=== PATIENT | female | born 2000 | race African-American/Black ===

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

== ENCOUNTER 2022-03-08 19:41 | Emergency (ER) | payer OTHER ==
[2022-03-08 19:49] VITALS: BP 112/62; PULSE 67; RESP 16; TEMP 98; BMI 47.2
[2022-03-08] MEDS ORDERED: MAG HYDROX/AL HYDROX/SIMETH -MYLANTA- ORAL SUSPENSION PO ONE (20:26)
[2022-03-08] MEDS ORDERED: MAG HYDROX/AL HYDROX/SIMETH 30 ML UNIT-DOSE CUP ONE (20:29)
== END 2022-03-08 22:36 | disposition home or self-care (01) ==
LOC: FER 19:41
DX: R07.89 Other chest pain (principal)
CPT/HCPCS: 71046-TC-FY; 99283-25

== ENCOUNTER 2022-05-31 12:32 | Emergency (ER) | payer OTHER ==
[2022-05-31 12:45] VITALS: BMI 46.3
[2022-05-31 16:37] LABS: CALCIUM 9.2 mg/dL (8.5-10.1)
[2022-05-31 16:38] LABS: ALBUMIN 3.6 g/dl (3.4-5.0); BLOOD UREA NITROGEN 7.7 mg/dL (7-18); MAGNESIUM 2.3 mg/dL (1.8-2.4)
[2022-05-31 16:41] LABS: CREATININE 0.7 mg/dL (0.55-1.3)
[2022-05-31 16:42] LABS: BASO % 0.4 % (0-2.0); EOS % 1.4 % (0-4.5); HEMATOCRIT 39.3 % (32.4-45.2); HEMOGLOBIN 12.5 GM/dL (10.7-15.3); LYMPH % 20.3 % (8-40); MCH 22.6 pg (25.7-33.7); MCHC 31.7 g/dl (32.0-36.0); MEAN CELL VOLUME 71.4 fl (80-96); MEAN PLT VOLUME 8.5 fl (7.5-11.1); MONO % 3.3 % (3.8-10.2); NEUT % 74.6 % (42.8-82.8); PLATELET COUNT 427 10^3/uL (134-434); RBC 5.51 M/mm3 (3.60-5.2); RDW 17.9 % (11.6-15.6); WHITE BLOOD COUNT 10.5 K/mm3 (4.0-10.0)
[2022-05-31 16:43] LABS: BILIRUBIN,TOTAL 0.4 mg/dL (0.2-1); TOT PROT 9.1 g/dl (6.4-8.2)
[2022-05-31] MEDS ORDERED: LORazepam 2 MG TABLET PO ONE (18:05)
[2022-05-31] MEDS ORDERED: LORazepam 0.5 MG TABLET ONE (18:38)
[2022-05-31 18:53] VITALS: BP 127/68; PULSE 72; RESP 15; TEMP 98
== END 2022-05-31 19:11 | disposition home or self-care (01) ==
LOC: JER 12:32
DX: R00.2 Palpitations (principal)
CPT/HCPCS: 0241U-QW; 36415; 71046-TC-FY; 80053; 83735; 84703; 85025; 93005; 93010; 99284-25

== ENCOUNTER 2022-06-06 05:24 | Emergency (ER) | payer OTHER ==
[2022-06-06 06:20] VITALS: BMI 45.3
[2022-06-06] MEDS ORDERED: POLYETHYLENE GLYCOL (HEALTHYLAX) 3350 17 GM PACKET PO ONE (06:30)
[2022-06-06] MEDS ORDERED: POLYETHYLENE GLYCOL (HEALTHYLAX) 3350 17 GM PACKET PO SCH (06:30)
[2022-06-06] MEDS ORDERED: IBUPROFEN 400 MG TABLET (FP) PO ONE ×2 (07:42→07:53)
[2022-06-06] MEDS ORDERED: diphenhydrAMINE HCL 25 MG CAPSULE (FP) PO ONE ×2 (07:42→07:52)
[2022-06-06 08:20] LABS: URINE APPEARANCE CLEAR; URINE BILIRUBIN NEGATIVE (NEGATIVE); URINE COLOR YELLOW; URINE GLUCOSE (UA) NEGATIVE (NEGATIVE); URINE KETONE NEGATIVE (NEGATIVE); URINE LEUK ESTERASE NEGATIVE (NEGATIVE); URINE NITRITE NEGATIVE (NEGATIVE); URINE PROTEIN NEGATIVE (NEGATIVE); URINE UROBILINOGEN 0.2 mg/dL (0.2-1.0)
[2022-06-06 09:41] VITALS: BP 125/84; PULSE 72; RESP 17; TEMP 97.6
== END 2022-06-06 09:35 | disposition home or self-care (01) ==
LOC: JER 05:24
DX: R06.02 Shortness of breath (principal)
CPT/HCPCS: 70360-TC-FY; 81003; 87077; 87086; 87651; 93005; 93010; 99285-25

== ENCOUNTER 2022-08-16 13:21 | Emergency (ER) | payer OTHER ==
[2022-08-16 13:39] VITALS: TEMP 97.3; BMI 46.8
[2022-08-16] MEDS ORDERED: PANTOPRAZOLE 20 MG TABLET PO ONE ×2 (16:32→17:00)
[2022-08-16] MEDS ORDERED: ACETAMINOPHEN 1000 MG/100 ML BAG IVPB ONE (16:32)
[2022-08-16] MEDS ORDERED: ACETAMINOPHEN INJECTION 100 ML IVPB ONE (17:00)
[2022-08-16 17:15] LABS: BASO % 0.8 % (0-2.0); EOS % 2.4 % (0-4.5); HEMATOCRIT 36.4 % (32.4-45.2); HEMOGLOBIN 11.8 GM/dL (10.7-15.3); LYMPH % 26.1 % (8-40); MCH 22.7 pg (25.7-33.7); MCHC 32.4 g/dl (32.0-36.0); MEAN CELL VOLUME 70.1 fl (80-96); MEAN PLT VOLUME 8.2 fl (7.5-11.1); NEUT % 65.7 % (42.8-82.8); PLATELET COUNT 361 10^3/uL (134-434); RBC 5.19 M/mm3 (3.60-5.2); RDW 18.1 % (11.6-15.6); WHITE BLOOD COUNT 10.6 K/mm3 (4.0-10.0)
[2022-08-16 17:26] LABS: INR 1.22 (0.83-1.09); PROTHROMBIN TIME (PATIENT) 14.1 SEC (9.7-13.0)
[2022-08-16 17:29] LABS: ACTIVATED PTT 34.8 SECONDS (25.2-36.5)
[2022-08-16 17:43] LABS: CHLORIDE 103 mmol/L (98-107); SODIUM 138 mmol/L (136-145)
[2022-08-16 17:46] LABS: ALBUMIN 3.5 g/dl (3.4-5.0); ANION GAP 7 MMOL/L (8-16); BLOOD UREA NITROGEN 11.8 mg/dL (7-18); CO2 27 mmol/L (21-32); GLUCOSE,RANDOM 84 mg/dL (74-106); LIPASE 44 U/L (73-393)
[2022-08-16 17:49] LABS: CREATININE 0.6 mg/dL (0.55-1.3); SGOT/AST 20 U/L (15-37); SGPT/ALT 17 U/L (13-61)
[2022-08-16 17:51] LABS: BILIRUBIN,TOTAL 0.4 mg/dL (0.2-1); TOT PROT 8.6 g/dl (6.4-8.2)
[2022-08-16 17:52] LABS: ALK PHOS 99 U/L (45-117)
[2022-08-16 19:03] LABS: URINE APPEARANCE CLEAR; URINE BILIRUBIN NEGATIVE (NEGATIVE); URINE COLOR YELLOW; URINE GLUCOSE (UA) NEGATIVE (NEGATIVE); URINE KETONE NEGATIVE (NEGATIVE); URINE LEUK ESTERASE NEGATIVE (NEGATIVE); URINE NITRITE NEGATIVE (NEGATIVE); URINE PROTEIN NEGATIVE (NEGATIVE); URINE UROBILINOGEN 0.2 mg/dL (0.2-1.0)
[2022-08-16 19:28] LABS: CHOLESTEROL 161 mg/dL (50-200); TRIGLYCERIDES 72 mg/dL (0-150)
[2022-08-16 19:31] LABS: HDL CHOLESTEROL 45 mg/dL (40-60); LDL CHOLESTEROL (ONLY SJRH) 97 mg/dL (5-100)
[2022-08-16] MEDS ORDERED: MAG HYDROX/AL HYDROX/SIMETH 30 ML UNIT-DOSE CUP PO ONE (20:42)
[2022-08-16] MEDS ORDERED: IBUPROFEN 400 MG TABLET (FP) PO ONE ×2 (20:42→20:58)
[2022-08-16] MEDS ORDERED: MAG HYDROX/AL HYDROX/SIMETH 30 ML UNIT-DOSE CUP ONE (20:58)
[2022-08-17 02:52] VITALS: BP 128/66; PULSE 78; RESP 18
== END 2022-08-17 03:55 | disposition home or self-care (01) ==
LOC: JER 13:21
PROC: 3E0333Z Introduction of Anti-inflammatory into Peripheral Vein, Percutaneous Approach (ICD-10-PCS; principal; 2022-08-16)
DX: R10.11 Right upper quadrant pain (principal); R00.2 Palpitations
CPT/HCPCS: 0241U-QW; 36415; 71046-TC-FY; 74177-TC; 76705-TC; 80053; 80061; 81003; 83690; 84702; 85025; 85610; 85730; 87086; 93005; 93010; 99285-25; Q9967